=== PATIENT | female | born 1965 | race Caucasian/White ===

== ENCOUNTER 2021-03-23 08:22 | Emergency (ER) | payer MEDICAID, SELFPAY ==
[2021-03-23 08:23] VITALS: BP 108/88; PULSE 105; RESP 20; TEMP 36; O2SAT 99; BMI 27.3
[2021-03-23 09:27] LABS: Absolute Lymphocyte Count 2.95 X10^3/uL (0.83-4.51); Absolute Neutrophil Count 6.1 X10^3/uL (2.0-7.7); Basophil# 0.06 X10^3/uL; Basophil% 0.6 % (0-1); Eosinophil# 0.29 X10^3/uL; Eosinophils% 2.8 % (0-5); Hematocrit 43.7 % (37-47); Hemoglobin 14.6 g/dL (12.0-15.0); Lymphocyte # 2.95 X10^3/ul (0.83-4.51); Lymphocyte % 28.8 % (19-41); Mean Corp Hgb Conc 33.4 g/dL (32-36); Mean Corpuscular Hgb 28.4 pg (27.0-32.0); Mean Platelet Vol. 11.2 fl (6.2-12.0); Monocyte# 0.77 X10^3/uL; Monocyte% 7.5 % (0-10); NRBC Flagged by Analyzer 0 % (0-5); Neutrophil # 6.14 X10^3/uL (2.7-7.7); Platelet Count 326 K/mm3 (150-450); RBC Distribution Width CV 12.9 % (11.6-14.6); RBC Distribution Width SD 39.8 fl (35.1-43.9); Red Blood Count 5.14 M/mm3 (4.2-5.4); White Blood Count 10.2 K/mm3 (4.4-11.0)
[2021-03-23 09:46] LABS: AST(SGOT) 20 U/L (15-37); Alanine Aminotransfer ALT/SGPT 68 U/L (13-56); Albumin, Serum 3.9 g/dL (3.2-5.0); Alkaline Phosphatase 97 U/L (45-117); Anion Gap 6 (5-15); BUN 27 mg/dL (7-18); BUN/Creat Ratio 29.9 RATIO (10-20); Calcium,Total 9.8 mg/dL (8.5-10.1); Chloride 103 mmol/L (98-107); EST Glomerular Filtration Rate 68 mL/min (>60); Est Glom Filt Rate - Afr Amer 83 mL/min (>60); Estimated Creatinine Clearance 56.36 ml/min; Globulin 3.8 g/dL (2.2-4.2); Glucose 93 mg/dL (74-106); Potassium 3.4 mmol/L (3.5-5.1); Protein, Total 7.7 g/dL (6.4-8.2); Sodium Level 141 mmol/L (136-145)
--- NOTE | 2021-03-23 10:11 | RAD_ITS ---
STUDY: X-RAY CHEST REASON FOR EXAM: Female, 56 years old. Cough TECHNIQUE: Single AP portable view of the chest. COMPARISON: None. FINDINGS: There is hyperinflation of the lungs consistent with chronic obstructive lung disease (COPD). There is no demonstrated pleural abnormality. Normal size heart. Normal mediastinum and mari. Normal visualized pulmonary arteries. Normal visualized aortic arch and descending thoracic aorta. Normal visualized thoracic spine. Healed right midclavicular fracture with deformity. There is no demonstrated abnormality of the visualized soft tissue structures of the upper abdomen. RAD/Chest 1 View (Portable) IMPRESSION: Hyperinflation. The lungs are clear. Electronically Signed: Tramaine Simon MD at 10:27 EST , Service support ,
--- NOTE | 2021-03-23 11:04 | EDS_ITS ---
HPI History of Present Illness Chief Complaint: Fatigue Narrative Narrative: Patient presents to the hospital with generalized weakness for the past 6 or 7 days, this is however day 9 of upper airway symptoms and the viral syndrome. She was diagnosed with COVID soon afterwards. She has no shortness of breath but she has myalgias and generalized weakness. No fevers or chills. Some myalgias are present. No pleuritic component no calf pain or swelling. ROS ROS ED ROS Narrative Past medical history: Reviewed Medications: Reviewed, unremarkable Social history: Noncontributory Review of systems: All systems negative except as indicated General: No fever. Generalized weakness as in HPI Eyes: No visual changes ENT: Some congestion, seems to be improving Neck: No neck pain Cardiovascular: No chest pain Respiratory: No shortness of breath. She does have a nonproductive cough Gastrointestinal: No abdominal pain, nausea vomiting or diarrhea Genitourinary: No dysuria Musculoskeletal: Some myalgias Skin: No rash Neurological: No memory loss, confusion or any focal weakness Psych: No recent behavioral changes Hematologic: No easy bleeding or easy bruising EXAM Physical Exam Narrative Exam Narrative: Physical exam General: Well nourished, Well developed, No Acute Distress Head: Normocephalic, Atraumatic Eyes: Conjunctiva not pale ENT: Moist mucous membranes Neck: Supple, Nontender, No lymphadenopathy Cardiovascular: Regular rate, Regular rhythm Respiratory: No distress, CTA bilaterally Abdomen: Soft, Nontender, Nondistended Back: Nontender, Normal Inspection. Negative for: CVA tenderness Extremities: Nontender, No edema Skin: Normal color, No rash Neurological: Alert, Normal Strength, Normal Sensation Psychological: Normal affect Const Vital Signs: 03/23/21 08:23 Temperature 96.8 F L Temperature Source Temporal Pulse Rate 105 H Respiratory Rate 20 H Blood Pressure 108/88 H Blood Pressure Mean 94 Pulse Ox 99 Oxygen Delivery Method Nasal Cannula MDM MDM MDM Narrative Medical decision making narrative: Patient has normal vitals and she appears well. She has an unremarkable ED work-up. I will discharge her with reassurance. This is day 9 of her symptoms I told her if she gets worse she is to return, she also does not have any signs or symptoms of thromboembolic disease, I do not believe she needs a work-up at this time, I did warn her that there is a possibility at 2 to 3 weeks afterwards to develop DVT or PE I told her about the signs and symptoms and she is to return. As of now there are no recommendations for thromboembolic prophylaxis in COVID patients. Lab Data Labs: Laboratory Results - last 24 hr 03/23/21 03/23/21 09:15 09:15 WBC 10.2 RBC 5.14 Hgb 14.6 Hct 43.7 MCV 85.0 MCH 28.4 MCHC 33.4 RDW Std Deviation 39.8 RDW Coeff of Greg 12.9 Plt Count 326 MPV 11.2 Immature Gran % (Auto) 0.300 Neut % (Auto) 60.0 Lymph % (Auto) 28.8 [place] % (Auto) 7.5 Eos % (Auto) 2.8 Baso % (Auto) 0.6 Absolute Neuts (auto) 6.1 Absolute Lymphs (auto) 2.95 Nucleated RBC % 0 Sodium 141 Potassium 3.4 L Chloride 103 Carbon Dioxide 32.0 Anion Gap 6 BUN 27 H Creatinine 0.90 Estim Creat Clear Calc 56.36 Est GFR (MDRD) Af Amer 83 Est GFR (MDRD) Non-Af 68 BUN/Creatinine Ratio 29.9 H Glucose 93 Calcium 9.8 Total Bilirubin 0.50 AST 20 ALT 68 H Alkaline Phosphatase 97 Total Protein 7.7 Albumin 3.9 Globulin 3.8 Albumin/Globulin Ratio 1.0 Radiography Diagnostic Testing: Clinical Impression(s) from Imaging Studies Chest X-Ray 03/23/21 10:11 IMPRESSION: Hyperinflation. The lungs are clear. Electronically Signed: Tramaine Simon MD at 10:27 EST , Service support , Discharge Plan Triage Chief Complaint: Fatigue ED Provider: Nima Mckeon Dx/Rx/DC Orders Clinical Impression: Weakness, COVID-19 Instructions: How COVID-19 Spreads, Symptoms of COVID-19 Infection Primary Care Provider: Chito Mccoy Referrals: Chito Mccoy MD [Primary Care Provider] - Disposition Disposition: Home, Self Care
[2021-03-23 11:20] VITALS: BP 119/82; PULSE 97; RESP 15; O2SAT 98
[2021-03-23 12:05] VITALS: BP 112/88; PULSE 87; RESP 16; O2SAT 99
== END 2021-03-23 12:06 | disposition home or self-care (01) ==
PROVIDERS: Emergency Provider Emergency Medicine; PCP Internal Medicine; Visit Provider Emergency Medicine
DX: U07.1 COVID-19 (principal); R53.1 Weakness; Z79.899 Other long term (current) drug therapy
CPT/HCPCS: 71045; 80053; 85025; 99283; J7030; A4216

== ENCOUNTER 2022-10-29 12:00 | Emergency (ER) | payer OTHER, SELFPAY ==
[2022-10-29 12:01] VITALS: BP 146/87; PULSE 92; RESP 20; TEMP 36.3; O2SAT 97; BMI 28.0
--- NOTE | 2022-10-29 12:22 | CT_ITS ---
HISTORY: RLQ tenderness. TECHNIQUE: Helically acquired images were obtained of the abdomen and pelvis after the intravenous administration of 100mL Isovue-370. A radiation dose optimization technique was used for this scan. 394 images. COMPARISON: None. FINDINGS: LOWER CHEST: Lung bases clear. BOWEL: Mild hiatal hernia. Bowel including appendix nondilated. No terminal ileal or periappendiceal inflammation. Colonic diverticulosis without focal inflammatory change observed. PERITONEUM: No significant ascites. LIVER: No enhancing mass. GALLBLADDER/BILIARY TREE: Cholecystectomy. SPLEEN/PANCREAS/ADRENAL GLANDS: Homogeneous and nonenlarged. KIDNEYS: 1.4 cm and 1.6 cm right renal cyst. Small left renal cysts measuring up to 1 cm. 2 mm right upper and 2 mm left lower pole calculi. No hydronephrosis. VESSELS: No abdominal aortic aneurysm. PELVIC ORGANS: Unremarkable. ABDOMINAL WALL: Small fat-containing inguinal hernias. BONES: Intramedullary rods of both femurs. CT/Abdomen/Pelvis W IV Cont ONLY IMPRESSION: Small nonobstructing bilateral renal calculi. Small renal cysts. Mild hiatal hernia. Unremarkable appendix. Colonic diverticulosis without acute diverticulitis. Electronically Signed: Angelica Mcdonald MD at 13:48 EDT ,
[2022-10-29 12:37] LABS: Absolute Lymphocyte Count 1.88 X10^3/uL (0.83-4.51); Basophil# 0.07 X10^3/uL; Eosinophil# 0.44 X10^3/uL; Eosinophils% 6.3 % (0-5); Hematocrit 41.1 % (37-47); Lymphocyte # 1.88 X10^3/ul (0.83-4.51); Lymphocyte % 26.9 % (19-41); Mean Corp Hgb Conc 31.6 g/dL (32-36); Mean Corpuscular Hgb 27.8 pg (27.0-32.0); Mean Corpuscular Volume 87.8 fL (81-99); Mean Platelet Vol. 11.2 fl (6.2-12.0); Monocyte# 0.57 X10^3/uL; Monocyte% 8.1 % (0-10); NRBC Flagged by Analyzer 0 % (0-5); Neutrophil # 4.03 X10^3/uL (2.7-7.7); Neutrophil % 57.6 % (47-70); Platelet Count 307 K/mm3 (150-450); RBC Distribution Width CV 14.3 % (11.6-14.6); RBC Distribution Width SD 46.2 fl (35.1-43.9); Red Blood Count 4.68 M/mm3 (4.2-5.4)
[2022-10-29 12:56] LABS: ALB/GLOB Ratio 1.2 RATIO (0.9-2.4); AST(SGOT) 21 U/L (15-37); Alanine Aminotransfer ALT/SGPT 35 U/L (13-56); Albumin, Serum 3.8 g/dL (3.2-5.0); Alkaline Phosphatase 86 U/L (45-117); Anion Gap 7 (5-15); BUN 28 mg/dL (7-18); BUN/Creat Ratio 29.3 RATIO (10-20); Calcium,Total 9.1 mg/dL (8.5-10.1); Chloride 106 mmol/L (98-107); Creatinine, Serum 0.96 mg/dL (0.55-1.02); EST Glomerular Filtration Rate 63 mL/min (>60); Est Glom Filt Rate - Afr Amer 77 mL/min (>60); Globulin 3.3 g/dL (2.2-4.2); Glucose 134 mg/dL (74-106); Lipase 50 U/L (13-75); Potassium 3.7 mmol/L (3.5-5.1); Protein, Total 7.1 g/dL (6.4-8.2); Sodium Level 141 mmol/L (136-145)
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
[2022-10-29 14:43] VITALS: BP 147/8; PULSE 79; RESP 16; TEMP 36.7; O2SAT 100
== END 2022-10-29 14:51 | disposition home or self-care (01) ==
PROVIDERS: Physician Assistant; Emergency Provider Emergency Medicine; PCP Internal Medicine; Visit Provider Emergency Medicine
DX: R19.7 Diarrhea, unspecified (principal); R11.0 Nausea; Z79.899 Other long term (current) drug therapy
CPT/HCPCS: 74177; 80053; 83690; 85025; 99282; Q9967; A4216

== ENCOUNTER → 2023-01-17 | Outpatient (CLI) | payer MEDICAID, SELFPAY ==
--- NOTE | 2023-01-17 15:59 | BI_ITS ---
MAMMOGRAPHY - BILATERAL SCREENING REASON FOR EXAM: Female, 57 years old. Routine annual screening examination. PERTINENT HISTORY: Aunt with breast cancer. History of prior right breast biopsy. TECHNIQUE: Digital bilateral breast vanessa (3D mammographic acquisition) in the CC and MLO projections. 2-D mediolateral oblique (MLO) and craniocaudad (CC) views of both breasts were obtained. CAD: Full Field Digital Mammography with Computer Added Detection was performed. COMPARISON: Comparison is made with prior outside examination May 28, 2021. FINDINGS: Breast Composition: There are scattered areas of fibroglandular density. There are no dominant masses or suspicious calcifications. A tissue clip marker is seen within a tiny nodule in the upper slightly medial aspect of the right breast. No other significant abnormalities are identified. BI/SCRN MAMM (CAD)W/VANESSA BILAT IMPRESSION: Tissue clip marker is seen within a tiny nodule in the upper slightly medial aspect of the right breast. The remainder of the examination is unchanged. Yearly follow-up mammogram recommended. (A) ASSESSMENT CATEGORY: BIRADS Category 2: Benign. A letter regarding these results will be sent to the patient by the facility within 30 days. Approximately 10% of breast cancers are not detected by mammography. A normal mammogram should not delay biopsy of a clinically suspicious abnormality. [id number] Electronically Signed: Tramaine Simon MD at 9:13 EST ,
== END | disposition home or self-care (01) ==
LOC: OPBI 15:57
PROVIDERS: PCP Internal Medicine; Visit Provider Nurse Practitioner Family
DX: Z12.31 Encounter for screening mammogram for malignant neoplasm of breast (principal)
CPT/HCPCS: 77063; 77067

== ENCOUNTER 2024-02-25 15:03 | Emergency (ER) | payer OTHER, SELFPAY ==
[2024-02-25 15:04] VITALS: BP 122/95; PULSE 89; RESP 16; TEMP 36.6; O2SAT 99; BMI 24.3
--- NOTE | 2024-02-25 15:18 | ED.VIS.GI ---
HPI HPI - GI History of Present Illness Chief Complaint: Nausea/Vomiting/Diarrhea Informant: patient Narrative Narrative: 58-year-old female presenting with diarrhea that has been going on for over 2 weeks. She states the week of Thanksgiving she did not feel well, then the day after Thanksgiving dinner she had nausea, vomiting, diarrhea all day, no fevers or chills or abdominal pain. The vomiting subsided and she has been having diarrhea 2-4 times per day ever since. She denies any mucus in it, no blood, no melena. She has had a 30 pound weight loss since then. She presents to the ER on a Monday this is the first time she has sought care for this. She denies any travel out of the area recently or antibiotics in the last couple months for anything. She does not usually have diarrhea. She states she ate Thanksgiving dinner with other people and none of the other people are ill with these symptoms. PFSH PFSH Medical History History of arm fracture Non-smoker Home Medications ?Medication ?Instructions ?Recorded ?Last Taken ?Type buspirone 5 mg tablet 5 mg PO BID 03/23/21 10/29/22 History duloxetine 60 mg capsule,delayed 120 mg PO BID 03/23/21 10/29/22 History release hydrochlorothiazide 25 mg tablet 25 mg PO DAILY 03/23/21 10/29/22 History ibuprofen 800 mg tablet 800 mg PO Q8H PRN PRN Pain 03/23/21 Unknown History lisinopril 40 mg tablet 40 mg PO DAILY 03/23/21 10/29/22 History omeprazole 20 mg capsule,delayed 20 mg PO DAILY 03/23/21 10/29/22 History release potassium chloride 10 mEq 10 meq PO DAILY 03/23/21 10/29/22 History tablet,extended release meloxicam 7.5 mg tablet 15 mg PO DAILY 10/29/22 Unknown History ciprofloxacin HCl 500 mg tablet 500 mg PO BID #6 TABLETS 02/25/24 Unknown Rx Allergy/AdvReac Type Severity Reaction Status Date / Time No Known Allergies Allergy Verified 02/25/24 15:05 Surgical History H/O exploratory laparotomy History of cholecystectomy Social History Smoking Status: Never smoker ROS ROS ED Constitutional Constitutional ED: Reports weight loss; Denies chills or fever(s) Eyes Eyes: Denies change in vision or diplopia ENT ENT ED: Denies rhinorrhea or sore throat Cardiovascular Cardiovascular: Denies chest pain or palpitations Respiratory/Chest Respiratory/Chest: Denies cough or dyspnea Gastrointestinal Gastrointestinal: Reports diarrhea; Denies abdominal pain, hematochezia, melena, nausea or vomiting Genitourinary Genitourinary ED: Denies dysuria or hematuria Musculoskeletal Musculoskeletal: Denies back pain or neck pain Integumentary Denies abscess or rash Neurologic Neurologic: Denies headache(s), paresthesias or weakness Psychiatric Psychiatric: Denies anxiety or suicidal thoughts EXAM Physical Exam Const Vital Signs: 02/25/24 15:04 Temperature 97.8 F Temperature Source Oral Pulse Rate 89 Respiratory Rate 16 Blood Pressure 122/95 H Blood Pressure Mean 104 Pulse Ox 99 Oxygen Delivery Method Room Air Positive well nourished and well developed General Appearance ED: well developed and NAD HEENT Reports moist mucous membranes normocephalic and atraumatic Eyes PERRL and EOMs intact bilaterally Neck full ROM and supple Resp normal respiratory effort and clear to auscultation bilaterally Cardio regular rate, regular rhythm and no murmurs GI non-tender and non-distended Auscultation: normoactive bowel sounds Palpation: soft Back/Spine no CVA tenderness General Back: other FROM Extremity normal to inspection General Extremety ED: Negative for edema, pulses abnormal or tenderness General Extremity: Negative for edema or pulses abnormal Neuro oriented x3, CN's II-XII intact bilaterally and no sensory deficits noted Sensorium / Orientation: awake and alert Motor Exam: strength 5/5 throughout Skin no rashes or lesions noted and no wounds MDM MDM MDM Narrative Medical decision making narrative: Other than prerenal azotemia and hypokalemia the patient's labs are normal. Her anemia is noted, but it is not significant to where we need to address in emergently. She can follow-up for that. She has not been bleeding that she knows of. Liver enzymes are normal, making a liver abscess much less likely, and given the fact that she has no pain or abdominal tenderness or leukocytosis I do not think a CT is warranted for this. Given that she has had diarrhea for so long with the weight loss, I think that the benefits of a 3-day trial of ciprofloxacin outweigh the potential risks. Patient was not able to provide stool sample here, so we are sending her home with stool collection kit and prescription for outpatient tests. She has a follow-up appointment with her doctor in 2 weeks at the end of the month, we discussed reasons to return but otherwise she should follow-up and she is comfortable with that plan and starting the antibiotic after she provides the specimen. She was given a 10 mill equivalent IV bolus of potassium chloride here in the emergency department prior to discharge. She already takes oral potassium at home which she is advised to continue, and I would advise that she hold her HCTZ diuretic until her diarrhea resolves. Lab Data Attestation: I reviewed the patient's lab results. Labs: Laboratory Results - last 24 hr 02/25/24 15:40 WBC 6.4 RBC 4.55 Hgb 11.3 L Hct 36.7 L MCV 80.7 L MCH 24.8 L MCHC 30.8 L RDW Std Deviation 51.3 H RDW Coeff of Greg 17.4 H Plt Count 264 MPV 10.4 Immature Gran % (Auto) 0.300 Neut % (Auto) 54.3 Lymph % (Auto) 28.4 [place] % (Auto) 12.9 H Eos % (Auto) 3.6 Baso % (Auto) 0.5 Absolute Neuts (auto) 3.5 Absolute Lymphs (auto) 1.81 Nucleated RBC % 0 Sodium 142 Potassium 3.0 L Chloride 105 Carbon Dioxide 31.0 Anion Gap 6 BUN 19 H Creatinine 0.90 Estim Creat Clear Calc 54.99 Est GFR (MDRD) Af Amer 82 Est GFR (MDRD) Non-Af 68 BUN/Creatinine Ratio 21.1 H Glucose 128 H Calcium 8.8 Total Bilirubin 0.40 AST 14 L ALT 18 Alkaline Phosphatase 94 Total Protein 6.7 Albumin 3.7 Globulin 3.0 Albumin/Globulin Ratio 1.2 Discharge Plan Triage Chief Complaint: Nausea/Vomiting/Diarrhea ED Provider: Jeevan Haile Dx/Rx/DC Orders Clinical Impression: Acute diarrhea, Hypokalemia due to excessive gastrointestinal loss of potassium Instructions: ED Diarrhea, Unknown Cause Prescriptions: New ciprofloxacin HCl 500 mg tablet 500 mg PO BID Qty: 6 0RF Continued buspirone 5 mg tablet 5 mg PO BID Patient Comments: TAKE 1 TABLET BY MOUTH TWICE DAILY NEEDED FOR ANXIETY ibuprofen 800 mg tablet 800 mg PO Q8H PRN PRN (Reason: Pain) Patient Comments: TAKE 1 TABLET BY MOUTH THREE TIMES DAILY NEEDED FOR PAIN potassium chloride 10 mEq tablet extended release 10 meq PO DAILY Patient Comments: TAKE 1 TABLET BY MOUTH TWICE DAILY omeprazole 20 mg capsule,delayed release(DR/EC) 20 mg PO DAILY Patient Comments: TAKE 1 CAPSULE BY MOUTH ONCE DAILY lisinopril 40 mg tablet 40 mg PO DAILY Patient Comments: TAKE 1 TABLET BY MOUTH ONCE DAILY duloxetine 60 mg capsule,delayed release(DR/EC) 120 mg PO BID Patient Comments: TAKE 1 CAPSULE BY MOUTH TWICE DAILY meloxicam 7.5 mg tablet 15 mg PO DAILY Held hydrochlorothiazide 25 mg tablet 25 mg PO DAILY Hold Instructions: until diarrhea resolved (diuretics can make you get dehydrated more easily) Patient Comments: TAKE 1 TABLET BY MOUTH ONCE DAILY Other Ambulatory Orders: ENTERIC PATHOGEN PANEL STOOL (Stat) Timeframe: 2 Days Facility: [facility] - Location: Laboratory Ordered By: Dr. Jeevan Haile Stool Lactoferrin/WBC (Routine) Timeframe: 2 Days Facility: [facility] - Location: Laboratory Ordered By: Dr. Jeevan Haile Primary Care Provider: Ines Henderson Referrals: Ines Henderson, AUTOMATION DEVELOPER-C [Primary Care Provider] - [facility] [place] appointment Print Language: Polish Disposition Disposition: Home, Self Care
[2024-02-25] MEDS: 0.9% Normal Saline (1000mL) 1,000 ML 999 ML IV (15:45)
[2024-02-25 15:47] LABS: Absolute Lymphocyte Count 1.81 X10^3/uL (0.83-4.51); Absolute Neutrophil Count 3.5 X10^3/uL (2.0-7.7); Basophil# 0.03 X10^3/uL; Basophil% 0.5 % (0-1); Eosinophil# 0.23 X10^3/uL; Eosinophils% 3.6 % (0-5); Hematocrit 36.7 % (37-47); Hemoglobin 11.3 g/dL (12.0-15.0); Lymphocyte # 1.81 X10^3/ul (0.83-4.51); Lymphocyte % 28.4 % (19-41); Mean Corp Hgb Conc 30.8 g/dL (32-36); Mean Corpuscular Hgb 24.8 pg (27.0-32.0); Mean Corpuscular Volume 80.7 fL (81-99); Mean Platelet Vol. 10.4 fl (6.2-12.0); Monocyte# 0.82 X10^3/uL; Monocyte% 12.9 % (0-10); NRBC Flagged by Analyzer 0 % (0-5); Neutrophil # 3.47 X10^3/uL (2.7-7.7); Neutrophil % 54.3 % (47-70); Platelet Count 264 K/mm3 (150-450); RBC Distribution Width CV 17.4 % (11.6-14.6); RBC Distribution Width SD 51.3 fl (35.1-43.9); Red Blood Count 4.55 M/mm3 (4.2-5.4); White Blood Count 6.4 K/mm3 (4.4-11.0)
[2024-02-25 16:00] LABS: ALB/GLOB Ratio 1.2 RATIO (0.9-2.4); AST(SGOT) 14 U/L (15-37); Alanine Aminotransfer ALT/SGPT 18 U/L (13-56); Albumin, Serum 3.7 g/dL (3.2-5.0); Alkaline Phosphatase 94 U/L (45-117); Anion Gap 6 (5-15); BUN 19 mg/dL (7-18); BUN/Creat Ratio 21.1 RATIO (10-20); Calcium,Total 8.8 mg/dL (8.5-10.1); Chloride 105 mmol/L (98-107); EST Glomerular Filtration Rate 68 mL/min (>60); Est Glom Filt Rate - Afr Amer 82 mL/min (>60); Estimated Creatinine Clearance 54.99 ml/min; Glucose 128 mg/dL (74-106); Protein, Total 6.7 g/dL (6.4-8.2); Sodium Level 142 mmol/L (136-145)
[2024-02-25] MEDS: Potassium Chloride 10mEq/100mL 10 MEQ/100 ML IV.SOLN. 100 MEQ IV BOLUS (16:28)
[2024-02-25 17:04] VITALS: BP 124/88; PULSE 86; RESP 16; O2SAT 99
== END 2024-02-25 17:36 | disposition home or self-care (01) ==
PROVIDERS: Emergency Provider Emergency Medicine; PCP Nurse Practitioner Family; Visit Provider Emergency Medicine
DX: R19.7 Diarrhea, unspecified (principal); R11.2 Nausea with vomiting, unspecified; E87.6 Hypokalemia; D64.9 Anemia, unspecified; R79.89 Other specified abnormal findings of blood chemistry; Z90.49 Acquired absence of other specified parts of digestive tract
CPT/HCPCS: 80053; 83630; 85025; 87177; 87209; 87493; 87506; 96361; 96365; 99283

== ENCOUNTER → 2024-03-11 | Outpatient (CLI) | payer OTHER, SELFPAY ==
[2024-03-11 12:39] LABS: Absolute Lymphocyte Count 1.51 X10^3/uL (0.83-4.51); Absolute Neutrophil Count 4.7 X10^3/uL (2.0-7.7); Basophil# 0.05 X10^3/uL; Basophil% 0.7 % (0-1); Eosinophil# 0.19 X10^3/uL; Eosinophils% 2.7 % (0-5); Hematocrit 39.4 % (37-47); Hemoglobin 12.2 g/dL (12.0-15.0); Lymphocyte # 1.51 X10^3/ul (0.83-4.51); Lymphocyte % 21.2 % (19-41); Mean Corpuscular Hgb 24.7 pg (27.0-32.0); Mean Corpuscular Volume 79.9 fL (81-99); Mean Platelet Vol. 11.2 fl (6.2-12.0); Monocyte# 0.69 X10^3/uL; Monocyte% 9.7 % (0-10); NRBC Flagged by Analyzer 0 % (0-5); Neutrophil # 4.66 X10^3/uL (2.7-7.7); Neutrophil % 65.6 % (47-70); Platelet Count 333 K/mm3 (150-450); RBC Distribution Width CV 17.4 % (11.6-14.6); RBC Distribution Width SD 50.6 fl (35.1-43.9); Red Blood Count 4.93 M/mm3 (4.2-5.4); White Blood Count 7.1 K/mm3 (4.4-11.0)
[2024-03-11 13:42] LABS: ALB/GLOB Ratio 1.2 RATIO (0.9-2.4); AST(SGOT) 15 U/L (15-37); Alanine Aminotransfer ALT/SGPT 21 U/L (13-56); Albumin, Serum 3.7 g/dL (3.2-5.0); Alkaline Phosphatase 79 U/L (45-117); Anion Gap 8 (5-15); BUN 22 mg/dL (7-18); BUN/Creat Ratio 24.2 RATIO (10-20); Calcium,Total 9.6 mg/dL (8.5-10.1); Chloride 105 mmol/L (98-107); Cholesterol 168 mg/dL (200); Creatinine, Serum 0.91 mg/dL (0.55-1.02); EST Glomerular Filtration Rate 67 mL/min (>60); Est Glom Filt Rate - Afr Amer 81 mL/min (>60); Globulin 3.1 g/dL (2.2-4.2); Glucose 101 mg/dL (74-106); High Density Lipoprotein 73 mg/dL; Potassium 3.4 mmol/L (3.5-5.1); Protein, Total 6.8 g/dL (6.4-8.2); Sodium Level 140 mmol/L (136-145); Triglycerides 113 mg/dL; Very Low Density Lipoprotein 23 mg/dL (5-40)
[2024-03-11 13:47] LABS: Hemoglobin A1c 5.6 % (3.8-5.6)
== END | disposition home or self-care (01) ==
LOC: LAB 11:54
PROVIDERS: PCP Nurse Practitioner Family; Referring Provider Nurse Practitioner Family; Visit Provider Nurse Practitioner Family
DX: I10 Essential (primary) hypertension (principal); Z13.1 Encounter for screening for diabetes mellitus; Z13.220 Encounter for screening for lipoid disorders
CPT/HCPCS: 36415; 80053; 80061; 83036; 84443; 85025

== ENCOUNTER 2024-03-24 08:41 | Emergency (ER) | payer OTHER, SELFPAY ==
[2024-03-24 08:42] VITALS: BP 112/80; PULSE 96; RESP 16; TEMP 36.2; O2SAT 100; BMI 23.1
[2024-03-24 08:44] VITALS: BP 112/80; PULSE 85; RESP 16; TEMP 36.3; O2SAT 99
--- NOTE | 2024-03-24 09:04 | CT_ITS ---
HISTORY: diarrhea, pain, diarrhea since Nov, wt loss, n/v/d, htn, stephanie. TECHNIQUE: Helically acquired images were obtained of the abdomen and pelvis after the intravenous administration of 100 mL Isovue-370. A radiation dose optimization technique was used for this scan. 379 images. COMPARISON: None. FINDINGS: LOWER CHEST: Lung bases clear. BOWEL: Mild hiatal hernia. Bowel nondilated. No periappendiceal inflammation. Mild fluid in the small bowel and colon. Colonic diverticulosis without pericolonic inflammation. PERITONEUM: No significant ascites. LIVER: No enhancing mass. GALLBLADDER/BILIARY TREE: Cholecystectomy. SPLEEN/PANCREAS/ADRENAL GLANDS: Homogeneous and nonenlarged. KIDNEYS: No hydronephrosis. Small bilateral cysts again seen which do not require follow-up. VESSELS: No abdominal aortic aneurysm. PELVIC ORGANS: Unremarkable. ABDOMINAL WALL: Small fat-containing inguinal hernias. BONES: Intramedullary lorena fixation of both femurs CT/Abdomen/Pelvis W IV Cont ONLY IMPRESSION: Mild gastroenteritis/diarrheal illness with mild fluid distention of bowel. Colonic diverticulosis without acute diverticulitis. Mild hiatal hernia. Electronically Signed: Angelica Mcdonald MD at 11:56 EST ,
--- NOTE | 2024-03-24 09:05 | ED.VIS.GI ---
HPI HPI - GI History of Present Illness Chief Complaint: Nausea/Vomiting/Diarrhea Narrative Narrative: 59-year-old female past medical history of hypertension presents with diarrhea that she has had since January, the last 2 months. She equates this with 30 pound weight loss. She has had nausea and vomiting and diarrhea as well. She relates history that she has had 3 episodes of diarrhea over the last 24 hours. Whenever she tries to eat, she will vomit. This morning she had small amount of milk that she tried to drink and could make it in the bathroom in time to vomited back up. She has an achy abdominal pain in her abdomen as well. She states she has been to her primary care provider and was in the emergency department 3 weeks ago, and is supposed to see a web software engineer. She states over the last week whenever she takes her medications she feels lightheaded and dizzy. No hematemesis or melena. PFSH PFSH Medical History History of arm fracture Non-smoker Home Medications ?Medication ?Instructions ?Recorded ?Last Taken ?Type duloxetine 60 mg capsule,delayed 120 mg PO BID 03/23/21 10/29/22 History release hydrochlorothiazide 25 mg tablet 25 mg PO DAILY 03/23/21 10/29/22 History ibuprofen 800 mg tablet 800 mg PO Q8H PRN PRN Pain 03/23/21 Unknown History lisinopril 40 mg tablet 40 mg PO DAILY 03/23/21 10/29/22 History omeprazole 20 mg capsule,delayed 20 mg PO DAILY 03/23/21 10/29/22 History release potassium chloride 10 mEq 10 meq PO DAILY 03/23/21 10/29/22 History tablet,extended release meloxicam 7.5 mg tablet 15 mg PO DAILY 10/29/22 Unknown History buspirone 10 mg tablet 10 mg PO BID 03/24/24 Unknown History dicyclomine 20 mg tablet 20 mg PO TID #15 tabs 03/24/24 Unknown Rx ondansetron 4 mg disintegrating 4 mg PO Q6H PRN nausea and 03/24/24 Unknown Rx tablet vomiting #20 tabs oxybutynin chloride 10 mg 10 mg PO DAILY bladder control 03/24/24 Unknown History tablet,extended release 24 hr Allergy/AdvReac Type Severity Reaction Status Date / Time No Known Allergies Allergy Verified 03/24/24 08:45 Surgical History H/O exploratory laparotomy History of cholecystectomy Social History Smoking Status: Never smoker ROS ROS ED ROS Narrative Constitutional: No fever, no chills. 30 pound weight loss over the last few months. HEENT: No sore throat. No neck pain. No loss of vision. No rhinorrhea. Cardiovascular: No chest pain. No palpitations. No pedal edema. Respiratory: No cough, no shortness of breath. Abdominal: Dull achy diffuse abdominal pain. Positive nausea and vomiting. Positive diarrhea since January. 3 episodes in last 24 hours. Genitourinary: No dysuria. No hematuria. Musculoskeletal: No myalgias. No arthralgias. Neurologic: No headaches. Positive lightheadedness and dizziness. Reported remote near-syncope and syncope. Skin: No rash. No change in color. EXAM Physical Exam Narrative Exam Narrative: Afebrile. Vital signs noted. HEENT: Normocephalic. Atraumatic. PERRL, EOMI. Neck soft and supple. No point tenderness or step off. Cardiovascular: Regular rate and rhythm. No murmurs, rubs, or gallops appreciated. Respiratory: No tachypnea. Lungs clear to auscultation bilaterally. Gastrointestinal: Abdomen soft, minimal diffuse tenderness, with normoactive bowel sounds. No rebound or guarding. Neurological: Awake. Alert. Nonfocal, nonlateralizing. Skin: No rash. Normal color. No pallor. Musculoskeletal: No pedal edema. Full range of motion extremities. Const Vital Signs: 03/24/24 08:42 03/24/24 08:44 03/24/24 10:41 Temperature 97.2 F L 97.3 F L Temperature Source Oral Oral Pulse Rate 96 85 74 Respiratory Rate 16 16 16 Blood Pressure 112/80 112/80 110/88 H Blood Pressure Mean 90 90 95 Pulse Ox 100 99 99 Oxygen Delivery Method Room Air Room Air MDM MDM MDM Narrative Medical decision making narrative: Differential diagnosis includes but not limited to colitis versus pancreatitis versus gastroenteritis versus dehydration or other electrolyte abnormality. Also the differential diagnosis would be undiagnosed inflammatory bowel disease or irritable bowel syndrome. She states additionally that her primary care provider put her on antibiotics for the diarrhea twice. Should she produce a stool sample, this will be sent for C. difficile. I do feel that she requires imaging of her abdomen given her weight loss and continued nausea, vomiting, and diarrhea to help rule out partial small bowel obstruction versus bowel obstruction. I reviewed her laboratory work and she has a normal white count of 5.3, hemoglobin 11.3 and hematocrit 36.6 with platelet count normal at 325. Electrolyte panel shows chloride slightly elevated at 111 but normal sodium of 142 and potassium 3.5. Glucose is normal at 104. AST slightly low at 13 which I think is nonspecific. Lipase normal at 74 so I doubt pancreatitis. There is no evidence of dehydration with her reported diarrhea for 2 months. I reviewed the radiology report of the CT of the abdomen and pelvis, and there is no acute process except for a diarrheal illness/gastroenteritis with fluid distention of bowel. No evidence of obstruction. She does have a hiatal hernia. Patient did complain of abdominal pain and cramping. She was given IM Bentyl and prescription written for Bentyl and Zofran. I suggest she follow-up with gastroenterology as soon as possible. She states she already has a referral from her primary care provider. At this point in time, while I do not feel that she requires hospitalization or emergent surgical consult, I feel she can be discharged to follow-up. Return instructions to the emergency department were reviewed. Disposition is discharged home in stable condition. History & Record Review Discussion w/independent historian: Patient and Friend Lab Data Attestation: I reviewed the patient's lab results. Labs: Laboratory Results - last 24 hr 03/24/24 09:15 WBC 5.3 RBC 4.55 Hgb 11.3 L Hct 36.6 L MCV 80.4 L MCH 24.8 L MCHC 30.9 L RDW Std Deviation 53.4 H RDW Coeff of Greg 18.2 H Plt Count 325 MPV 11.1 Immature Gran % (Auto) 0.400 Neut % (Auto) 63.1 Lymph % (Auto) 24.3 [place] % (Auto) 9.1 Eos % (Auto) 2.5 Baso % (Auto) 0.6 Absolute Neuts (auto) 3.3 Absolute Lymphs (auto) 1.28 Nucleated RBC % 0 Sodium 142 Potassium 3.5 Chloride 111 H Carbon Dioxide 27.0 Anion Gap 5 BUN 25 H Creatinine 0.88 Estim Creat Clear Calc 55.53 Est GFR (MDRD) Af Amer 84 Est GFR (MDRD) Non-Af 70 BUN/Creatinine Ratio 28.4 H Glucose 104 Calcium 9.2 Total Bilirubin 0.50 AST 13 L ALT 21 Alkaline Phosphatase 80 Total Protein 6.5 Albumin 3.5 Globulin 3.0 Albumin/Globulin Ratio 1.2 Lipase 74 Radiography Diagnostic Testing: Clinical Impression(s) from Imaging Studies Abdomen/Pelvis CT 03/24/24 09:04 IMPRESSION: Mild gastroenteritis/diarrheal illness with mild fluid distention of bowel. Colonic diverticulosis without acute diverticulitis. Mild hiatal hernia. Electronically Signed: Angelica Mcdonald MD at 11:56 EST , Discharge Plan Triage Chief Complaint: Nausea/Vomiting/Diarrhea ED Provider: Bubba Hernandez Dx/Rx/DC Orders Clinical Impression: Diarrhea, Abdominal pain, Gastroenteritis Instructions: ED Abdominal Pain Unkn Cause Fem, ED Diarrhea, Unknown Cause, ED Diet Vomiting Diarrhea Prescriptions: New ondansetron 4 mg tablet,disintegrating 4 mg PO Q6H PRN (Reason: nausea and vomiting) Qty: 20 0RF dicyclomine 20 mg tablet 20 mg PO TID Qty: 15 0RF No Action ibuprofen 800 mg tablet 800 mg PO Q8H PRN PRN (Reason: Pain) Patient Comments: TAKE 1 TABLET BY MOUTH THREE TIMES DAILY NEEDED FOR PAIN potassium chloride 10 mEq tablet extended release 10 meq PO DAILY Patient Comments: TAKE 1 TABLET BY MOUTH TWICE DAILY omeprazole 20 mg capsule,delayed release(DR/EC) 20 mg PO DAILY Patient Comments: TAKE 1 CAPSULE BY MOUTH ONCE DAILY hydrochlorothiazide 25 mg tablet 25 mg PO DAILY Patient Comments: TAKE 1 TABLET BY MOUTH ONCE DAILY lisinopril 40 mg tablet 40 mg PO DAILY Patient Comments: TAKE 1 TABLET BY MOUTH ONCE DAILY duloxetine 60 mg capsule,delayed release(DR/EC) 120 mg PO BID Patient Comments: TAKE 1 CAPSULE BY MOUTH TWICE DAILY meloxicam 7.5 mg tablet 15 mg PO DAILY oxybutynin chloride 10 mg tablet extended release 24hr 10 mg PO DAILY buspirone 10 mg tablet 10 mg PO BID Primary Care Provider: Ines Henderson VSC Referrals: Ke Larsen DO [Med Staff - Active Staff] - As soon as possible Iens Henderson [facility], PLANT SCIENCE PROFESSOR-C [Primary Care Provider] - As soon as possible Activity Restrictions/Additional Instructions: Follow-up with gastroenterology as soon as possible regarding your 2 months of diarrhea. Return with fever, increased pain, new or worsening symptoms. Print Language: Hungarian Disposition Disposition: Home, Self Care
[2024-03-24 09:41] LABS: ALB/GLOB Ratio 1.2 RATIO (0.9-2.4); AST(SGOT) 13 U/L (15-37); Alanine Aminotransfer ALT/SGPT 21 U/L (13-56); Albumin, Serum 3.5 g/dL (3.2-5.0); Alkaline Phosphatase 80 U/L (45-117); Anion Gap 5 (5-15); BUN 25 mg/dL (7-18); BUN/Creat Ratio 28.4 RATIO (10-20); Calcium,Total 9.2 mg/dL (8.5-10.1); Chloride 111 mmol/L (98-107); Creatinine, Serum 0.88 mg/dL (0.55-1.02); EST Glomerular Filtration Rate 70 mL/min (>60); Est Glom Filt Rate - Afr Amer 84 mL/min (>60); Estimated Creatinine Clearance 55.53 ml/min; Glucose 104 mg/dL (74-106); Lipase 74 U/L (13-75); Potassium 3.5 mmol/L (3.5-5.1); Protein, Total 6.5 g/dL (6.4-8.2); Sodium Level 142 mmol/L (136-145)
[2024-03-24 09:46] LABS: Absolute Lymphocyte Count 1.28 X10^3/uL (0.83-4.51); Absolute Neutrophil Count 3.3 X10^3/uL (2.0-7.7); Basophil# 0.03 X10^3/uL; Basophil% 0.6 % (0-1); Eosinophil# 0.13 X10^3/uL; Eosinophils% 2.5 % (0-5); Hematocrit 36.6 % (37-47); Hemoglobin 11.3 g/dL (12.0-15.0); Lymphocyte # 1.28 X10^3/ul (0.83-4.51); Lymphocyte % 24.3 % (19-41); Mean Corp Hgb Conc 30.9 g/dL (32-36); Mean Corpuscular Hgb 24.8 pg (27.0-32.0); Mean Corpuscular Volume 80.4 fL (81-99); Mean Platelet Vol. 11.1 fl (6.2-12.0); Monocyte# 0.48 X10^3/uL; Monocyte% 9.1 % (0-10); NRBC Flagged by Analyzer 0 % (0-5); Neutrophil # 3.32 X10^3/uL (2.7-7.7); Neutrophil % 63.1 % (47-70); Platelet Count 325 K/mm3 (150-450); RBC Distribution Width CV 18.2 % (11.6-14.6); RBC Distribution Width SD 53.4 fl (35.1-43.9); Red Blood Count 4.55 M/mm3 (4.2-5.4); White Blood Count 5.3 K/mm3 (4.4-11.0)
[2024-03-24 10:41] VITALS: BP 110/88; PULSE 74; RESP 16; O2SAT 99
[2024-03-24] MEDS: Dicyclomine 20 MG/2 ML Vial IM (12:54)
[2024-03-24 12:58] VITALS: BP 130/80; PULSE 68; RESP 17; TEMP 36.5; O2SAT 99
== END 2024-03-24 13:17 | disposition home or self-care (01) ==
PROVIDERS: Emergency Provider Emergency Medicine; PCP Nurse Practitioner Family; Visit Provider Emergency Medicine
DX: K52.9 Noninfective gastroenteritis and colitis, unspecified (principal); I10 Essential (primary) hypertension; Z90.49 Acquired absence of other specified parts of digestive tract; Z79.899 Other long term (current) drug therapy
CPT/HCPCS: 74177; 80053; 83690; 85025; 96372; 99283; Q9967; A4216

== ENCOUNTER → 2024-07-02 | Outpatient (CLI) | payer OTHER, SELFPAY ==
[2024-07-02 16:10] LABS: Absolute Lymphocyte Count 2.52 X10^3/uL (0.83-4.51); Absolute Neutrophil Count 4.4 X10^3/uL (2.0-7.7); Basophil# 0.04 X10^3/uL; Basophil% 0.5 % (0-1); Eosinophil# 0.21 X10^3/uL; Eosinophils% 2.7 % (0-5); Hematocrit 33.4 % (37-47); Hemoglobin 10.4 g/dL (12.0-15.0); Lymphocyte # 2.52 X10^3/ul (0.83-4.51); Lymphocyte % 32.4 % (19-41); Mean Corp Hgb Conc 31.1 g/dL (32-36); Mean Corpuscular Hgb 25.9 pg (27.0-32.0); Mean Corpuscular Volume 83.3 fL (81-99); Mean Platelet Vol. 11.1 fl (6.2-12.0); Monocyte# 0.55 X10^3/uL; Monocyte% 7.1 % (0-10); NRBC Flagged by Analyzer 0 % (0-5); Neutrophil # 4.44 X10^3/uL (2.7-7.7); Platelet Count 267 K/mm3 (150-450); RBC Distribution Width CV 16.3 % (11.6-14.6); RBC Distribution Width SD 49.6 fl (35.1-43.9); Red Blood Count 4.01 M/mm3 (4.2-5.4); White Blood Count 7.8 K/mm3 (4.4-11.0)
[2024-07-02 16:45] LABS: ALB/GLOB Ratio 1.7 RATIO (0.9-2.4); AST(SGOT) 18 U/L (<=31); Alanine Aminotransfer ALT/SGPT 17 U/L (<=34); Albumin, Serum 4.1 g/dL (3.4-4.8); Alkaline Phosphatase 80 U/L (35-104); Anion Gap 12 (5-15); BUN 22 mg/dL (4-19); BUN/Creat Ratio 31.8 RATIO (10-20); Calcium,Total 9.6 mg/dL (7.6-11.0); Carbon Dioxide 24.1 mmol/L (21.0-32.0); Chloride 106 mmol/L (98-108); EST Glomerular Filtration Rate 98 (>60); Globulin 2.5 g/dL (2.2-4.2); Glucose 93 mg/dL (70-99); Magnesium 2.1 mg/dL (1.5-2.2); Potassium 3.9 mmol/L (3.3-5.1); Protein, Total 6.6 g/dL (5.9-8.4); Sodium Level 141 mmol/L (133-145); Total Bilirubin < 0.15 mg/dL (0.00-1.30)
== END | disposition home or self-care (01) ==
LOC: VSLAB 15:44
PROVIDERS: PCP Nurse Practitioner Family; Visit Provider Nurse Practitioner Family
DX: R19.7 Diarrhea, unspecified (principal)
CPT/HCPCS: 36415; 80053; 83735; 85025

== ENCOUNTER 2024-07-05 06:09 | Day surgery (SDC) | payer OTHER, SELFPAY ==
[2024-07-05] VITALS (8 sets, daily range): BP systolic 91–108; BP diastolic 64–89; PULSE 74–82; RESP 16–18; TEMP 36–37; O2SAT 96–98; BMI 20.8
[2024-07-05] MEDS: Lactated Ringers 1,000 ML 15 ML IV (06:48)
--- NOTE | 2024-07-05 06:54 | PRE.ANES_ITS ---
ASA Classification* ASA Classification ASA Classification: 2 Assessment & Plan Anesthesia* Anesthesia Assessment Anesthesia Assessment: Discussed sedation and/or anesthesia options, risks, benefits, and alternatives with patient/parents/legal guardian/POA. Questions invited. The patient/parents/legal guardian/POA seems to understand and agrees to proceed with anesthesia plan. Reviewed the physical assessment, medical history, allergy history and patient home medications list prior to surgery/procedure/anesthetic and documented any changes. Performed airway and anesthesia risk assessments. Anesthesia Type Anesthesia Type: MAC History Source History Obtained from:: Patient and Chart Anesthesia Focused Assessment* Temperature: 97.6 F Pulse Rate: 81 Blood Pressure: 108/89 Respiratory Rate: 17 Pulse Ox: 98 Oxygen Delivery Method: Room Air Airway Assessment Mouth opens: >3 cm Mallampati Score: III Teeth Condition: Intact Neck Range of motion (ROM): Full ROM Focused Labs Anesthesia Preop lab: CBC WBC 7.8 K/mm3 (4.4-11.0) 07/02/24 15:44 07/02/24 RBC 4.01 M/mm3 (4.2-5.4) L 07/02/24 15:44 07/02/24 Hgb 10.4 g/dL (12.0-15.0) L 07/02/24 15:44 5 Hct 33.4 % (37-47) L 07/02/24 15:44 07/02/24 Plt Count 267 K/mm3 (150-450) 07/02/24 15:44 07/02/24 CHEMISTRY Potassium 3.9 mmol/L (3.3-5.1) 07/02/24 15:44 07/02/24 Sodium 141 mmol/L (133-145) 07/02/24 15:44 07/02/24 Magnesium 2.1 mg/dL (1.5-2.2) 07/02/24 15:44 07/02/24 BUN 22 mg/dL (4-19) H 07/02/24 15:44 07/02/24 Creatinine 0.70 mg/dL (0.70-1.20) 07/02/24 15:44 07/02/24 Glucose 93 mg/dL (70-99) 07/02/24 15:44 07/02/24 TSH 1.220 uIU/mL (0.358-3.740) 03/11/24 11:55 12 COAG Pre-Assessment Diagnosis/Proposed Procedure Planned Operative Procedure(s): COLONOSCOPY, EGD Anesthesia History Anesthesia History - accounts payable representative: Anesthesia History - accounts payable representative Hx Hospitalization No 07/03/24 12:50 Any Problems With Anesthesia Hard to wake up 07/03/24 12:50 Cholinesterase deficiency No 07/03/24 12:50 You/Your Family Experience No 07/03/24 12:50 fever (hyperthermia) with Relationship Recent Exposure to Contagious No 07/05/24 06:45 Disease Does patient have nerve No 07/03/24 12:50 stimulator Patient instructed to have device shut off --Does patient have Pacemaker No 07/05/24 06:45 or ICD? When Was Last Pacemaker Check QUESTION #4 FULL TEXT: You/Your Family Experience fever (hyperthermia) with Anesthesia Last Oral Intake Last Oral intake: Last Oral Intake NPO since 00:00 07/05/24 06:45 Meds taken in AM with sips of No 07/05/24 06:45 water? Meds patient instructed to take am of surgery Any additional information?: Yes PONV PONV - accounts payable representative: PONV - accounts payable representative Female Yes 07/03/24 12:50 HX of Motion Sickness No 07/03/24 12:50 HX of N/V After Surgery No 07/03/24 12:50 Non-Smoker Yes 07/03/24 12:50 Duration of Surgery greater No 07/03/24 12:50 than 60 minutes Number of Risk Factors 2 07/03/24 12:50 PONV Score Moderate Risk 07/03/24 12:50 Height & Weight Height & Weight: Anesthesia: Height & Weight Height 5 ft 3 in 07/05/24 06:45 Weight: 53.3 kg 07/05/24 06:45 Body Mass Index (BMI) 20.8 07/05/24 06:45 Respiratory Assessment Respiratory Assessment - accounts payable representative: Respiratory Tract Infection Hx - accounts payable representative Hx Respiratory Tract Infection No 07/03/24 12:50 STOP Sleep Apnea STOP Sleep Apnea - accounts payable representative: STOP Sleep Apnea - accounts payable representative Hx Hypertension Yes 07/03/24 12:50 Hx Sleep Apnea No 07/03/24 12:50 CPAP BIPAP Do you snore loudly (louder No 07/03/24 12:50 than talking or can be heard Do you often feel tired/ No 07/03/24 12:50 fatigued/ sleepy during daytime? Has anyone observed you stop No 07/03/24 12:50 breathing during sleep? STOP Results Negative 07/03/24 12:50 QUESTION #5 FULL TEXT : Do you snore loudly (louder than talking or can be heard through closed doors)? 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 Specify any problems Hx of Preganancy in last 3 No 07/03/24 12:50 Months Nurse Filling Out Transfusion VLEHMAN 07/03/24 12:50 & Questions: Date: 07/03/24 07/03/24 12:50 Time: 12:57 07/03/24 12:50 Patient unable to answer at this time (ie. confused, unrespo /Reproduction History /Reproductive History - accounts payable representative: /Reproductive Hx- accounts payable representative Hx Now Gestational Age (in weeks): EDC: Hx Hx Para Hx Section SAB Active Medications Active Medications: Current Medications Generic Name Dose Route Start Last Admin Trade Name Freq PRN Reason Stop Dose Admin Lactated Ringer's 1,000 mls @ 15 mls/hr 07/05/24 06:30 07/05/24 06:48 IV 15 mls/hr .Q48H AUBREY Administration PFSH Medical History Wears glasses Post-menopausal Depression Anxiety Marijuana use Bipolar disorder Arthritis Bladder disease Anemia Gastric reflux HTN (hypertension) GERD (gastroesophageal reflux disease) History of arm fracture Non-smoker Home Medications ?Medication ?Instructions ?Recorded ?Last Taken ?Type duloxetine 60 mg capsule,delayed 120 mg PO BID 2 07/04/24 History release ibuprofen 800 mg tablet 800 mg PO Q8H PRN PRN Pain 0 03/23/21 07/04/24 History omeprazole 20 mg capsule,delayed 20 mg PO DAILY 07/04/24 History release meloxicam 7.5 mg tablet 15 mg PO DAILY 10/29/2206/12 History buspirone 10 mg tablet 10 mg PO BID 03/24/24 History ondansetron 4 mg disintegrating 4 mg PO Q6H PRN nausea and 03/24/24 Unknown Rx tablet vomiting #20 tabs oxybutynin chloride 10 mg 10 mg PO DAILY bladder contr ol 03/24/24 07/04/24 History tablet,extended release 24 hr lisinopril 20 mg tablet 20 mg PO QDAY 06/19/2407/04 History potassium chloride 20 mEq 20 meq PO QDAY 06/19/2406/12 History tablet,extended release brexpiprazole 0.5 mg tablet 0.5 mg PO QHS 07/03/24 History (Rexulti) Allergy/AdvReac Type Severity Reaction Status Date / Time No Known Allergies Allergy Verified 07/05/24 06:44 Family History Grandfather Diabetes Father Hypertension Cancer Mother Hypertension Surgical History H/O exploratory laparotomy History of cholecystectomy Social History Smoking Status: Never smoker Review of Systems (Anesthesia) ROS Narrative System reviewed and no additional complaints, except as documented.
--- NOTE | 2024-07-05 07:30 | EGD_PTH ---
PATIENT: COLEMAN CAREY LOC: EN U#:[id number] AGE/SX: 59/F ROOM: RE07/05/[address]: Dr. Timo Lucero MD : 1965 BED: DIS: 07/05/2024 SPEC #: [id number] RECD: 07/05/24 11:49 STATUS: YOLIS RECarmen #: [id number] ROXANA: 07/05/24 07:[address]: Timo Lucero DEPT: SURGICAL PATHOLOGY RECD BY: Kana Noble ENTERED: 07/05/24 13:24 SP TYPE: EGD BIOPSY OT DR: Ines Henderson, [place] [facility], HIDE DROPPER-C Tissues: A - Gastric mucous membrane B - Esophagus, NOS C - COLON BIOPSY Procedures: Immunohistochemical Stains Surgery Specimen Level IV HEADER OPERATION: Colonoscopy, EGD with biopsy PRE-OP DIAGNOSIS: Diarrhea and weight loss TISSUE SUBMITTED: A- Antral biopsy, B- Gastroesophageal junction biopsy, C- Random colon biopsy MICROSCOPIC DIAGNOSIS A. Stomach, antrum, biopsy: Active chronic gastritis. IHC negative for H.pylori organisms. B. Gastroesophageal junction, biopsy: Benign squamous mucosa. Negative for increased eosinophils. C. Colon, random, biopsy: No specific pathologic change. The histologic features of microscopic colitis are not demonstrated. MICROSCOPIC DESCRIPTION Slides are reviewed. All matched controls reacted appropriately. These tests were developed and their performance characteristics determined by [facility]. They may not have been cleared or approved by the U.S. Food and Drug Administration. The FDA has determined that such clearance or approval is not necessary. The above immunohistochemical/dualISH markers are ordered and reviewed by the Pathologist. GROSS DESCRIPTION A. Received in formalin in a container labeled with the patient's name, date of , and antral biopsy/H. pylori is a 0.3 x 0.3 x 0.3 cm fragment of [place]-pink mucosal tissue. Submitted in toto in A1. B. Received in formalin in a container labeled with the patient's name, date of , and GE junction biopsy rule out Wood's are multiple small sal[place]-pink fragments of mucosal tissue measuring 0.7 x 0.6 x 0.2 cm in aggregate. Submitted in toto in B1. C. Received in formalin in a container labeled with the patient's name, date of , and random colon biopsy are multiple [place]-pink fragments of mucosal tissue measuring 1.3 x 0.6 x 0.3 cm in aggregate. Submitted in toto in C1. [facility] 07-05-2024 CPT:[id number],71401
--- NOTE | 2024-07-05 07:32 | PCM.HP.STD ---
HPI - General General Date of Admission: 07/05/24 Date of Service: 07/05/24 Chief Complaint: EGD/ colonoscopy HPI Narrative The patient is a 59-year-old female who is being seen today for EGD and colonoscopy. She states that she has been having significant weight loss and diarrhea since January of this year. She states that she will typically have 3-4 bowel movements a day on a bad day. Sometimes this will alternate with normal frequency of stools as well. She denies any other changes to the appearance of her stools. She states she has had about 30+ pounds of weight loss in the past 5 months. She denies any abdominal pain. She states that this began after she had an episode of nausea vomiting and diarrhea. After this episode she has been plagued with diarrhea since. She has undergone stool studies as well as a CT scan all of which have been unremarkable. Her PCP is recommended scopes. [facility] Medical History Wears glasses Post-menopausal Depression Anxiety Marijuana use Bipolar disorder Arthritis Bladder disease Anemia Gastric reflux HTN (hypertension) GERD (gastroesophageal reflux disease) History of arm fracture Non-smoker Home Medications ?Medication ?Instructions ?Recorded ?Last Taken ?Type duloxetine 60 mg capsule,delayed 120 mg PO BID 03/23/21 07/04/24 History release ibuprofen 800 mg tablet 800 mg PO Q8H PRN PRN Pain 03/23/21 07/04/24 History omeprazole 20 mg capsule,delayed 20 mg PO DAILY 03/23/21 07/04/24 History release meloxicam 7.5 mg tablet 15 mg PO DAILY 10/29/22 07/04/24 History buspirone 10 mg tablet 10 mg PO BID 03/24/24 07/04/24 History ondansetron 4 mg disintegrating 4 mg PO Q6H PRN nausea and 03/24/24 Unknown Rx tablet vomiting #20 tabs oxybutynin chloride 10 mg 10 mg PO DAILY bladder control 03/24/24 07/04/24 History tablet,extended release 24 hr lisinopril 20 mg tablet 20 mg PO QDAY 06/19/24 07/04/24 History potassium chloride 20 mEq 20 meq PO QDAY 06/19/24 07/04/24 History tablet,extended release brexpiprazole 0.5 mg tablet 0.5 mg PO QHS 07/03/24 07/04/24 History (Rexulti) Allergy/AdvReac Type Severity Reaction Status Date / Time No Known Allergies Allergy Verified 07/05/24 06:44 Family History Grandfather Diabetes Father Hypertension Cancer Mother Hypertension Surgical History H/O exploratory laparotomy History of cholecystectomy Social History Smoking Status: Never smoker Vital Signs Vital Signs Vital Signs: 07/05/24 06:45 07/05/24 06:45 07/05/24 06:59 Temperature 97.6 F L 97.6 F L Temperature Source Temporal Pulse Rate 81 81 Respiratory Rate 17 17 Respiratory Pattern Normal Blood Pressure 108/89 H 108/89 H Blood Pressure Mean 95 Blood Pressure Source Monitor Blood Pressure Position Semi-Fowlers Blood Pressure Location Left Arm Pulse Ox 98 98 Oxygen Delivery Method Room Air Room Air Weight Weight: 117 lb 8.102 oz Body Mass Index (BMI) 20.8 Physical Exam Const alert, oriented x3 and no apparent distress Assessment & Plan Assessment/Plan (1) Acute diarrhea: (2) Weight loss: PLAN: Plan planned for EGD/colonoscopy today Charges/Coding Visit Charges Inpatient E&M: 02138 Init Hosp L1
--- NOTE | 2024-07-05 08:21 | PCM.POST.ANE ---
Anesthesia: Postop Eval I Current Vital Signs Temperature: 97 F Pulse Rate: 75 Blood Pressure: 93/67 Respiratory Rate: 16 Pulse Ox: 96 Oxygen Delivery Method: Room Air Assessment Airway patent: Yes Spontaneous unlabored respirations: Yes Mental status: Awake and Calm nausea: No Vomiting: No Anesthesia Complication: No Fluid Hydration Crystalloid volume administer (ml): 500 Total IV fluid infused: 500 Progress Note Anesthesia document: Postop Eval 1 completed: Yes
--- NOTE | 2024-07-05 08:28 | OP.CCLET_ITS ---
07/05/2024 Ines Henderson [facility], Tower Erector Helper-c Re : Upper GI endoscopy procedure for Maria Luz Mendiolar Santiago This procedure was performed on Friday, July 05, 2024. My impressions and recommendations are as follows: Impressions : - Normal second portion of the duodenum. - Gastric antral vascular ectasia without bleeding. Biopsied. - Small hiatal hernia. - No gross lesions in the entire esophagus. Biopsied. Recommendations : - Discharge patient to home (ambulatory). - High fiber diet indefinitely. - Continue present medications. - Await pathology results. - Repeat upper endoscopy for surveillance based on pathology results. My findings are described in the full procedure note, which is enclosed. If I can be of further assistance, please feel free to contact me at . Sincerely, Timo Lucero MD 07/05/2024 8:28:11 AM This report has been signed electronically.
--- NOTE | 2024-07-05 08:28 | OP.EGD_ITS ---
Patient Name: Maria Luz Giron Procedure Date: 07/05/2024 7:14 AM Date of : 1965 Age: 59 Procedure: Upper GI endoscopy Indications: Heartburn Providers: Timo Lucero MD Referring MD: Ines Henderson [facility], [employer] Medicines: Monitored Anesthesia Care Patient Profile: Refer to note in patient chart for documentation of history and physical. Patient has symptoms of chronic dyspepsia. Complications: No immediate complications. Estimated blood loss: Minimal. Procedure: Pre-Anesthesia Assessment: - Prior to the procedure, a History and Physical was performed, and patient medications and allergies were reviewed. The patient's tolerance of previous anesthesia was also reviewed. The risks and benefits of the procedure and the sedation options and risks were discussed with the patient. All questions were answered, and informed consent was obtained. Prior Anticoagulants: The patient has taken no anticoagulant or antiplatelet agents. ASA Grade Assessment: II - A patient with mild systemic disease. After reviewing the risks and benefits, the patient was deemed in satisfactory condition to undergo the procedure. After obtaining informed consent, the endoscope was passed under direct vision. Throughout the procedure, the patient's blood pressure, pulse, and oxygen saturations were monitored continuously. The Endoscope was introduced through the mouth, and advanced to the second part of duodenum. The upper GI endoscopy was accomplished without difficulty. The patient tolerated the procedure well. Moderate Sedation: See the other procedure note for documentation of moderate sedation with intraservice time. Scope In: 7:39:29 AM Scope Out: 7:45:42 AM Total Procedure Duration Time 0 hours 6 minutes 13 seconds Findings: The second portion of the duodenum was normal. Mild gastric antral vascular ectasia without bleeding was present in the stomach. Biopsies were taken with a cold forceps for Helicobacter pylori testing. Verification of patient identification for the specimen was done by the nurse using the patient's name, date and medical record number. Estimated blood loss was minimal. A small hiatal hernia was present. No gross lesions were noted in the entire esophagus. Mucosa was biopsied with a cold forceps for histology randomly at the gastroesophageal junction. Verification of patient identification for the specimen was done by the nurse using the patient's name, date and medical record number. Estimated blood loss was minimal. Impression: - Normal second portion of the duodenum. - Gastric antral vascular ectasia without bleeding. Biopsied. - Small hiatal hernia. - No gross lesions in the entire esophagus. Biopsied. Recommendation: - Discharge patient to home (ambulatory). - High fiber diet indefinitely. - Continue present medications. - Await pathology results. - Repeat upper endoscopy for surveillance based on pathology results. Procedure Code(s): --- Professional --- 96662, Esophagogastroduodenoscopy, flexible, transoral; with biopsy, single or multiple Diagnosis Code(s): --- Professional --- K31.819, Angiodysplasia of stomach and duodenum without bleeding R12, Heartburn K44.9, Diaphragmatic hernia without obstruction or gangrene CPT copyright 2021 [employer]. All rights reserved. The codes documented in this report are preliminary and upon creosoting engineer review may be revised to meet current compliance requirements. Timo Lucero MD 07/05/2024 8:28:11 AM This report has been signed electronically. Number of Addenda: 0 Note Initiated On: 07/05/2024 7:14 AM
--- NOTE | 2024-07-05 08:33 | OP.COLON_ITS ---
Patient Name: Maria Luz Giron Procedure Date: 07/05/2024 7:47 AM Date of : 1965 Age: 59 Procedure: Colonoscopy Indications: Clinically significant diarrhea of unexplained origin Providers: Timo Lucero MD Referring MD: Ines Henderson [facility], Brake Specialist-c Medicines: Monitored Anesthesia Care Patient Profile: Refer to note in patient chart for documentation of history and physical. Patient has symptoms of chronic dyspepsia. Refer to note in patient chart for documentation of history and physical. Last Colonoscopy: several years ago. Complications: No immediate complications. Estimated blood loss: Minimal. Procedure: Pre-Anesthesia Assessment: - Prior to the procedure, a History and Physical was performed, and patient medications and allergies were reviewed. The patient's tolerance of previous anesthesia was also reviewed. The risks and benefits of the procedure and the sedation options and risks were discussed with the patient. All questions were answered, and informed consent was obtained. Prior Anticoagulants: The patient has taken no anticoagulant or antiplatelet agents. ASA Grade Assessment: II - A patient with mild systemic disease. After reviewing the risks and benefits, the patient was deemed in satisfactory condition to undergo the procedure. After I obtained informed consent, the scope was passed under direct vision. Throughout the procedure, the patient's blood pressure, pulse, and oxygen saturations were monitored continuously. The adult colonoscope was introduced through the anus and advanced to the cecum, identified by appendiceal orifice and ileocecal valve. The ileocecal valve, appendiceal orifice, and rectum were photographed. The entire colon was well visualized. The colonoscopy was somewhat difficult due to a tortuous colon. Successful completion of the procedure was aided by using manual pressure. The patient tolerated the procedure well. The quality of the bowel preparation was adequate. Moderate Sedation: See the other procedure note for documentation of moderate sedation with intraservice time. Scope In: 7:50:05 AM Scope Withdrawal Time 0 hours 6 minutes 42 seconds Scope Out: 8:19:04 AM Total Procedure Duration Time 0 hours 28 minutes 59 seconds Findings: The perianal and digital rectal examinations were normal. A segmental area of mildly erythematous mucosa was found in the descending colon. Biopsies were taken with a cold forceps for histology. Verification of patient identification for the specimen was done by the nurse using the patient's name, date and medical record number. Estimated blood loss was minimal. Internal hemorrhoids were found during endoscopy. The hemorrhoids were moderate. Impression: - Erythematous mucosa in the descending colon. Biopsied. - Internal hemorrhoids. Recommendation: - Repeat colonoscopy for surveillance based on pathology results. - Return to my office PRN. - Continue present medications. Procedure Code(s): --- Professional --- 02200, Colonoscopy, flexible; with biopsy, single or multiple Diagnosis Code(s): --- Professional --- K63.89, Other specified diseases of intestine R19.7, Diarrhea, unspecified K64.8, Other hemorrhoids CPT copyright 2021 [employer]. All rights reserved. The codes documented in this report are preliminary and upon data coder operator review may be revised to meet current compliance requirements. Timo Lucero MD 07/05/2024 8:32:40 AM This report has been signed electronically. Number of Addenda: 0 Note Initiated On: 07/05/2024 7:47 AM
--- NOTE | 2024-07-05 08:33 | OP.CCLET_ITS ---
07/05/2024 Ines Henderson [facility], Senior Case Manager-c Re : Colonoscopy procedure for Maria Luz Giron Dear Santiago This procedure was performed on Friday, July 05, 2024. My impressions and recommendations are as follows: Impressions : - Erythematous mucosa in the descending colon. Biopsied. - Internal hemorrhoids. Recommendations : - Repeat colonoscopy for surveillance based on pathology results. - Return to my office PRN. - Continue present medications. My findings are described in the full procedure note, which is enclosed. If I can be of further assistance, please feel free to contact me at . Sincerely, Timo Lucero MD 07/05/2024 8:32:40 AM This report has been signed electronically.
--- NOTE | 2024-07-05 08:33 | POSTOPAN2_ITS ---
Anesthesia Postop Eval I Sum Postop Eval Completion status Anesthesia document: Postop Eval 1 completed: Yes Anesthesia Postop Eval I Summary Anesthesia Postop Eval I Summary: Anesthesia Postop Eval I: Assessment Summary Airway patent Yes 07/05/24 08:21 [employer] POWER PLANT MANAGER.MDOT Spontaneous unlabored Yes 07/05/24 08:21 [employer] CAPT[employer] POWER PLANT MANAGER.MDOT respirations Mental status Awake,Calm 07/05/24 08:21 [employer] CAPT[employer] POWER PLANT MANAGER.MDOT nausea No 07/05/24 08:21 [employer] CAPT[employer] POWER PLANT MANAGER.MDOT Vomiting No 07/05/24 08:21 [employer]BON CAPT[employer] POWER PLANT MANAGER.MDOT Anesthesia Postop Eval I: Fluid Summary Crystalloid volume administer 500 07/05/24 08:21 [employer]BON CAPTURE POWER PLANT MANAGER.MDOT (ml) Colloids volume administered ( ml) Blood Product volume administered (ml) Total IV fluid infused 500 07/05/24 08:21 [employer]BON CAPT[employer] POWER PLANT MANAGER.MDOT Anesthesia Postop Eval I: Summary Notes Anesthesia Complication No 07/05/24 08:21 [employer]BON CAPTURE POWER PLANT MANAGER.MDOT Anesthesia Complication Comment: Post-operative progress note Anesthesia: Postop Eval II Evaluation Mental status: Awake and Calm Pain Level: 0 nausea: No Vomiting: No Complications Anesthesia Complication: No
--- NOTE | 2024-07-05 08:33 | PCM.POSTANE2 ---
Anesthesia Postop Eval I Sum Postop Eval Completion status Anesthesia document: Postop Eval 1 completed: Yes Anesthesia Postop Eval I Summary Anesthesia Postop Eval I Summary: Anesthesia Postop Eval I: Assessment Summary Airway patent Yes 07/05/24 08:21 [email or web address] Spontaneous unlabored Yes 07/05/24 08:21 [email or web address] respirations Mental status Awake,Calm 07/05/24 08:21 [email or web address] nausea No 07/05/24 08:21 [email or web address] Vomiting No 07/05/24 08:21 [email or web address] Anesthesia Postop Eval I: Fluid Summary Crystalloid volume administer 500 07/05/24 08:21 [email or web address] (ml) Colloids volume administered ( ml) Blood Product volume administered (ml) Total IV fluid infused 500 07/05/24 08:21 [email or web address] Anesthesia Postop Eval I: Summary Notes Anesthesia Complication No 07/05/24 08:21 [email or web address] Anesthesia Complication Comment: Post-operative progress note Anesthesia: Postop Eval II Evaluation Mental status: Awake and Calm Pain Level: 0 nausea: No Vomiting: No Complications Anesthesia Complication: No
== END 2024-07-05 12:12 | disposition home or self-care (01) ==
LOC: EN 06:11 → AC 06:12
PROVIDERS: PCP Nurse Practitioner Family; Referring Provider Nurse Practitioner Family; Visit Provider Surgery
PROC: 0DJD8ZZ Inspection of Lower Intestinal Tract, Via Natural or Artificial Opening Endoscopic (ICD-10-PCS; CPT 45378; principal; 2024-07-05 07:25)
DX: K29.50 Unspecified chronic gastritis without bleeding (principal); K31.819 Angiodysplasia of stomach and duodenum without bleeding; K44.9 Diaphragmatic hernia without obstruction or gangrene; R19.7 Diarrhea, unspecified; R63.4 Abnormal weight loss; I10 Essential (primary) hypertension; K21.9 Gastro-esophageal reflux disease without esophagitis; Z79.899 Other long term (current) drug therapy; K64.8 Other hemorrhoids; F41.9 Anxiety disorder, unspecified; F32.A Depression, unspecified
CPT/HCPCS: 45380; 43239; 88305; 88342

== ENCOUNTER → 2024-09-25 | Outpatient (CLI) | payer OTHER, SELFPAY ==
[2024-09-25 16:33] LABS: Hematocrit 37.9 % (37-47); Hemoglobin 12.5 g/dL (12.0-15.0); Immature Granulocytes Count 0.020 X10^3/uL (0.0-0.0); Mean Corp Hgb Conc 33.0 g/dL (32-36); Mean Corpuscular Volume 87.7 fL (81-99); Mean Platelet Vol. 10.7 fl (6.2-12.0); NRBC Flagged by Analyzer 0 % (0-5); Platelet Count 243 K/mm3 (150-450); RBC Distribution Width CV 15.1 % (11.6-14.6); RBC Distribution Width SD 48.6 fl (35.1-43.9); Red Blood Count 4.32 M/mm3 (4.2-5.4); White Blood Count 7.4 K/mm3 (4.4-11.0)
[2024-09-25 18:11] LABS: AST(SGOT) 19 U/L (<=31); Alanine Aminotransfer ALT/SGPT 20 U/L (<=34); Albumin, Serum 4.3 g/dL (3.4-4.8); Alkaline Phosphatase 89 U/L (35-104); Anion Gap 12 (5-15); BUN 19 mg/dL (4-19); BUN/Creat Ratio 22.8 RATIO (10-20); Calcium,Total 9.5 mg/dL (7.6-11.0); Carbon Dioxide 25.0 mmol/L (21.0-32.0); Chloride 104 mmol/L (98-108); Follicle Stimulating Hormone 63.3 mIU/mL; Globulin 2.2 g/dL (2.2-4.2); Glucose 94 mg/dL (70-99); Potassium 3.7 mmol/L (3.3-5.1)
== END | disposition home or self-care (01) ==
LOC: VSLAB 16:14
PROVIDERS: PCP Nurse Practitioner Family; Visit Provider Nurse Practitioner Family
DX: I10 Essential (primary) hypertension (principal); N95.1 Menopausal and female climacteric states
CPT/HCPCS: 36415; 80053; 82670; 83001; 83002; 84443; 85025